=== PATIENT | male | born 1980 | race Caucasian/White ===

== ENCOUNTER → 2016-09-12 10:23 | Outpatient (CLI) | payer BC | END | disposition home or self-care (01) | LOC: D.CT 10:23 → D.MRI 11:00 | DX: M54.5 Low back pain (principal); J32.0 Chronic maxillary sinusitis ==

== ENCOUNTER → 2016-09-19 16:09 | Outpatient (CLI) | payer BC | END | disposition home or self-care (01) | LOC: D.MRI 16:09 | DX: R51 Headache (principal) ==

== ENCOUNTER → 2016-11-13 08:13 | Outpatient (CLI) | payer BC | END | disposition home or self-care (01) | LOC: D.NM 08:13 | DX: R10.11 Right upper quadrant pain (principal) ==

== ENCOUNTER 2017-01-01 06:06 | Day surgery (SDC) | payer BC ==
[~2017-01-01] VITALS: Ht 180.3 cm; Wt 93.0 kg
--- NOTE | ~2017-01-01 | OP ---
PATIENT NAME: AMOS HARRISON MEDICAL RECORD: [id number] :78 LOCATION:D.OPS ADMISSION DATE: SURGEON: TRAVIS MELGOZA MD DATE OF OPERATION: 01/01/2017 PREOPERATIVE DIAGNOSIS: Biliary dyskinesia. POSTOPERATIVE DIAGNOSIS: Chronic cholecystitis. PROCEDURE: Laparoscopic cholecystectomy. SURGEON: Travis Melgoza MD. REPORT OF PROCEDURE: The patient's abdomen was prepped and draped in sterile fashion. A cutdown was made on the superior aspect of the umbilicus, 0 Vicryls were placed in the fascia bilaterally and the fascia was incised with 15-blade. I then bluntly entered the peritoneal cavity and placed a 12-mm Neeraj port. Under direct visualization, a 5-mm trocar was placed in the epigastrium and 2 more 5-mm trocars were placed in the right subcostal region. The gallbladder was grasped and elevated. There was noted to be a significant amount of inflammatory changes present, most of these chronic in nature. The inflammatory fatty tissue was teased down carefully until we were able to dissect out the cystic artery and cystic duct. These structures were clipped proximally and distally and ligated in standard fashion. The gallbladder was taken off the liver bed using electrocautery and placed into an Endo Catch bag. The right upper quadrant was irrigated out. Any bleeding from the liver bed was treated with electrocautery. Once irrigated out the abdomen, we assured there was no sign of any bleeding or bile leakage. At this point, the ports and insufflation were then removed and the gallbladder was taken out through the umbilicus. The umbilical fascia was closed with interrupted 0 Vicryls times 3. The wounds were irrigated out with normal saline and infused with 10 mL of 0.25% Marcaine with epinephrine. The skin incisions were closed with subcutaneous 5-0 Monocryl and dressed appropriately. COMPLICATIONS: None. CONDITION: Stable. ANESTHESIA: General endotracheal and local. BLOOD LOSS: Minimal. TRANSINT:[id number] Voice Confirmation ID: [id number] DOCUMENT ID: [id number] TRAVIS MELGOZA MD CC: SHELLIE CAROLYNE [id number] DICTATION DATE: 01/01/17 0951 COPY READER: 01/01/17 1143 [facility] 01/01/17 [facility] [address] [id number]
[~2017-01-01 06:06] MED LIST: CO Q-10200 MG PO; FISH OIL 1,2001 CAP PO; MATZIM LA240 MG PO; PROTONIX40 MG PO
[2017-01-01 06:59] LABS: BASOPHILS 0.5 % (0-2); EOSINOPHILS 2.6 % (0-7); HEMATOCRIT 45.4 % (42.0-54.0); HEMOGLOBIN 15.5 g/dL (13.5-17.5); IMMATURE GRANULOCYTES 0.2 % (0-5); LYMPHOCYTES 32.8 % (15-50); MCH 27.8 pg (26.0-34.0); MCHC 34.1 g/dL (31.0-37.0); MCV 81.5 fL (80.0-100.0); MEAN PLATELET VOLUME 9.7 fL (7.4-10.4); MONOCYTES 7.9 % (2-11); PLATELET COUNT 342 10x3/uL (130-400); RBC 5.57 10x6/uL (4.20-6.10); RDW 13.8 % (11.5-14.5); WBC 9.7 10x3/uL (4.8-10.8)
[2017-01-01 07:08] LABS: CALC OSMOLALITY 276 mosm/kg (275-300); CALCIUM 8.8 mg/dL (8.5-10.1); CARBON DIOXIDE 27.9 mmol/L (21.0-32.0); CHLORIDE - SERUM 102 mmol/L (98-107); CREATININE - SERUM 1.1 mg/dL (0.6-1.3); GLUCOSE 102 mg/dL (74-106); POTASSIUM - SERUM 3.4 mmol/L (3.5-5.1); SODIUM 139 mmol/L (136-145); UREA NITROGEN 10 mg/dL (7-18); eGFR NON AFRICAN AMERICAN 80 mL/min (90-120)
--- NOTE | 2017-01-01 07:46 | NUR ---
0745 PT [facility]AES NO CHANGES IN HEALTH HISTORY ASSESSMENT SINCE INTERVIEWED ON 12/31/16 EXCEPT FOR SOME NAUSEA PT ATTRIBUTES TO GALL BLADDER. Kris HAYNES R.N.
[2017-01-01 07:58] VITALS: BP 134/83; Ht 180.3 cm; Wt 93.0 kg
[2017-01-01] MEDS ORDERED: HYDROCODONE-APA1 TAB PO (09:46)
== END 2017-01-01 13:18 | disposition home or self-care (01) ==
LOC: D.OPS 06:06 → D.PAN 08:30 → D.OPS 09:15 → D.PAN 09:15 → D.OPS 13:18
PROVIDERS: Surgery
DX: K81.1 Chronic cholecystitis (principal); Z01.812 Encounter for preprocedural laboratory examination

== ENCOUNTER → 2017-01-29 15:31 | Outpatient (CLI) | payer BC ==
[2017-01-01 07:58] VITALS: BMI 28.6
[~2017-01-29 15:31] MED LIST changes: +HYDROCODONE-APA1 TAB PO
[2017-01-29 20:57] LABS: ERYTHROCYTE SEDIMENTATION RATE 9 mm/hr (0-15)
[2017-01-30 07:59] LABS: HIV 1 & 2- RAPID SCREEN NEGATIVE (NEGATIVE)
== END | disposition home or self-care (01) ==
LOC: D.LABREF 15:31
PROVIDERS: Student in an Organized Health Care Education/Training Program
DX: R53.81 Other malaise (principal)

== ENCOUNTER → 2017-02-05 15:18 | Outpatient (CLI) | payer BC ==
[2017-01-01 07:58] VITALS: BMI 28.6
== END | disposition home or self-care (01) ==
LOC: D.CT 15:18
DX: R07.89 Other chest pain (principal)

== ENCOUNTER 2019-08-19 17:01 | Emergency (ER) | payer BC ==
[~2019-08-19] VITALS: Ht 180.3 cm; Wt 75.0 kg
[2019-08-19 17:17] VITALS: Ht 180.3 cm; Wt 75.0 kg
[2019-08-19 17:48] LABS: BASOPHILS 0.6 % (0-2); EOSINOPHILS 0.9 % (0-7); HEMATOCRIT 48.6 % (42.0-54.0); HEMOGLOBIN 15.8 g/dL (13.5-17.5); IMMATURE GRANULOCYTES 0.4 % (0-5); LYMPHOCYTES 26.3 % (15-50); MCH 27.7 pg (26.0-34.0); MCHC 32.5 g/dL (31.0-37.0); MCV 85.1 fL (80.0-100.0); MEAN PLATELET VOLUME 9.8 fL (7.4-10.4); MONOCYTES 8.7 % (2-11); NEUTROPHILS 63.1 % (40-80); PLATELET COUNT 383 10x3/uL (130-400); RBC 5.71 10x6/uL (4.20-6.10); RDW 13.9 % (11.5-14.5); WBC 8.5 10x3/uL (4.8-10.8)
[2019-08-19 17:52] LABS: PROTIME 13.1 SECONDS (11.6-15.0)
[2019-08-19 17:53] LABS: APTT 33.7 SECONDS (22.8-39.4)
[2019-08-19 18:43] LABS: CALC OSMOLALITY 278 mosm/kg (275-300); CALCIUM 9.9 mg/dL (8.5-10.1); CARBON DIOXIDE 29.9 mmol/L (21.0-32.0); CHLORIDE - SERUM 101 mmol/L (98-107); GLUCOSE 116 mg/dL (74-106); POTASSIUM - SERUM 3.9 mmol/L (3.5-5.1); SODIUM 140 mmol/L (136-145); UREA NITROGEN 10 mg/dL (7-18); eGFR NON AFRICAN AMERICAN 88 mL/min (90-120)
[2019-08-19 19:00] LABS: ALBUMIN 4.3 g/dL (3.4-5.0); ALKALINE PHOSPHATASE 83 U/L (30-120); ALT (SGPT) 27 U/L (10-68); BILIRUBIN - TOTAL 0.46 mg/dL (0.2-1.3); CKMB 0.2 U/L (0.0-3.6); CREATINE KINASE 70 UL (21-232); MAGNESIUM - SERUM 2.2 mg/dL (1.8-2.4); PROTEIN - SERUM 8.3 g/dL (6.4-8.2); TROPONIN-I < 0.017 ng/mL (0.000-0.060)
[2019-08-19] MEDS ORDERED: PROTONIX40 MG PO (20:25)
[2019-08-19 20:48] VITALS: BP 140/97
== END 2019-08-19 20:48 | disposition home or self-care (01) ==
LOC: D.ER 17:01
PROVIDERS: Family Medicine
DX: R07.89 Other chest pain (principal); K21.9 Gastro-esophageal reflux disease without esophagitis